=== PATIENT | female | born 1960 | race Caucasian/White ===

== ENCOUNTER → 2016-11-10 | Outpatient (CLI) | payer OTHER ==
[~2016-11-10] MED LIST: GADOBUTROL 10 ML VIAL IVP ONE
--- NOTE | 2016-11-10 11:28 | MR ---
MRI of the Brain and IACs (Without and With Contrast) Clinical Indication: New onset of dizziness, double vision, and altered mental status in a 56-year-ol d female. No previous studies are available. Technique: T1-weighted images were acquired axially and sagittally from the foramen magnum to the ve rtex. Axial fast T1-weighted, fast T2-weighted, entire brain images were obtained without contrast. Postcontrast axial images through the entire brain with the uneventful intravenous administration of 7 mL Gadavist contrast. Additional thin slice pre- and postcontrast axial T1-weighted imaging through the internal auditory canals and precontrast 3D FSE T2. Findings: The ventricles, cisterns, and sulci are normal. There is no hydrocephalus, midline shift, herniation, or epidural/subdural hematomas. No intracranial hemorrhage or masses. Cerebellar tonsils are in normal position. Pituitary gland is normal in size. Normal signal flow-void in the superior sa gittal sinus, basilar artery. Diffusion-weighted sequences are negative for acute ischemia. Scattered areas of white matter T2 hyperintensity are seen involving subcortical and periventricular white mat ter regions bilaterally. These do not demonstrate enhancement or mass effect and presumably reflect s mall vessel ischemic disease. Bilateral internal carotid arteries indicating patency. Postcontrast images demonstrate no enhancing lesions or abnormal leptomeningeal enhancement. Bilatera l internal auditory canals, cerebellopontine angle cisterns, VII and VIII cranial nerve complexes dem onstrate no abnormal enhancement, enhancing lesions, or masses. Impression: 1. Normal findings involving the internal auditory canals and cerebellopontine angles bilaterally. 2. Nonspecific white matter T2 hyperintensity areas bilaterally are probably related to small vessel ischemic change.
== END ==
LOC: FIMAGING 08:36
PROVIDERS: ATTEND Physician Assistant Medical
DX: H53.2 Diplopia (principal); R42 Dizziness and giddiness
CPT/HCPCS: A9585

== ENCOUNTER → 2017-09-17 | Outpatient (CLI) | payer OTHER | LOC: FIMAGING 09:02 | PROVIDERS: ATTEND Physician Assistant Medical | DX: R41.89 Other symptoms and signs involving cognitive functions and awareness (principal); G43.719 Chronic migraine without aura, intractable, without status migrainosus ==